=== PATIENT | female | born 1960 | race Caucasian/White ===

== ENCOUNTER 2016-09-04 18:28 | Inpatient (IN) | payer MEDICARE, OTHER ==
--- NOTE | ~2016-09-04 | A ---
[facility] Nutrition Therapy DATE: 09/05/16 Patient: JANETH ARAUZ Physician: TRUMAN Address: [address] Room/Bed: [address] [place] [address], Zip: [place] [address] Admit Date: 09/04/16 Date of : [birth year] Height: 5 4 Weight: 165 74.84 NUTRITIONAL ASSESSMENT: REASON: 2 PTS NUTRITION SCREEN RISK RE: 6# WEIGHT LOSS 56 yo female admitted for colitis PMH: HTN, GERD, HLD, chronic neck and back pain Anthropometrics: Ht: 64" Wt: 74.84 kg BMI: 28.3 Labs: Gluc 147 BUN 6 Alb 3.1 Meds: Protonix, lipitor, KCl, NaCl I/O & Bowel function: 1100/1, last BM 09/04, diarrhea noted Skin Integrity: no breakdown or edema noted Diet: Regular Assessment: Chart reviewed, events noted. RD spoke with the pt at bedside. Pt reportedly has lost ~6# in the past couple weeks due to diarrhea, n/v. Pt denies any abdominal pain or n/v at this time. Pt admitted for colitis, and noted to have bloody diarrhea. C.diff pending. Hepatomegaly and hepatic steatosis noted by MD. MD just wrote for pt to advance to regular diet, and the pt reported tolerance of clear liquids. Pt states she is hungry, and requested specific foods. RD reviewed menu options with the pt, encouraging her to start with low fiber options due to her colitis Dx. Pt voiced understanding. RD expects adequate PO intake. 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 Intervention: 1. Heart healthy diet Monitoring, Evaluation and Goals: 1. Oral intake; tolerate intake of solid food without c/o n/v, diarrhea 2. Improve labs; glucose 3. GI; promote regular GI function Recommendations: 1. Add heart healthy diet restriction due to the pt's PMH, also possible hepatic steatosis [facility] Therapy DATE: 09/05/16 Patient: JANETH ARAUZ Physician: TRUMAN Address: [address] Room/Bed: [address] [place] [address], Zip: [place] [address] Admit Date: 09/04/16 Date of : [birth year] Height: 5 4 Weight: 165 74.84 noted. Encouraged the pt to choose lower fiber options while colitis persists; however, the pt does not require the minimal fiber offered on low fiber diet at this time. 2. Monitor tolerance of solid food. If the pt has n/v, revert back to clear liquid diet. Pt is at mild nutritional risk. RD will follow up per protocol. Respectfully, RENU CORRALES RD, LD [facility] cc: client file
--- NOTE | ~2016-09-04 | DS ---
Unit #: [id number] #: [id number] Patient: JANETH ARAUZ [id number] [facility]. [place], [place] [address] [id number] MR#: [id number] NAME: JANETH ARAUZ. ROOM: 230 Age: 56 Sex: F Admission Date: 09/04/2016 : 1960 Discharge Date: 09/07/2016 Attending Physician: Phylicia Castro M.D. Primary Care Physician: Ricardo Coleman M.D. DISCHARGE SUMMARY DISCHARGE DIAGNOSES 1. Clostridium difficile colitis. 2. Essential hypertension. 3. Chronic pain syndrome with narcotic dependence. 4. Hypokalemia. 5. Chronic obstructive pulmonary disease. 6. Gastroesophageal reflux disease. 7. Hyperlipidemia. HOSPITAL COURSE The patient is a 56-year-old female who presented to [facility] with two to three days of bloody diarrhea. It was associated with lower abdominal pain, fevers, nausea, and vomiting. Patient was seen by her primary care provider and was noted to have a white cell count of 18. She underwent a CT scan which showed colitis of the ascending colon. She was started on Cipro and Flagyl but failed to improve. The patient was admitted and started on IV antibiotics. She was noted to have C. difficile colitis on laboratory testing and has been on continued IV Flagyl. At this time, the patient states she has had no diarrhea today. Her white count peaked at 20 but is 11 today. She is afebrile and has been over the course of her entire stay. As a result, the patient is being discharged home on 10 more days of oral Flagyl. DISCHARGE MEDICATIONS 1. Cymbalta 60 mg daily. 2. Ambien 10 mg p.o. at bedtime. 3. Amlodipine 5 mg p.o. daily. 4. Lasix 40 mg daily. 5. Lipitor 40 mg daily. 6. Hydrocodone and acetaminophen 10/325 at 1 p.o. q.6 hours p.r.n. 7. OxyContin 30 mg p.o. t.i.d. 8. Prilosec 20 mg daily. 9. Zanaflex 4 mg daily. 10. Flagyl 500 mg p.o. t.i.d. x10 days. FOLLOWUP Patient should follow up with her primary care provider, Dr. Coleman, at the end of her antibiotic course. Dictated by... Osiel Oneill M.D. Unit #: [id number] #: [id number] Patient: JANETH ARAUZ KATELYNN/cindy TD: 09/09/2016 14:30 JOB #: [id number] DISCHARGE SUMMARY Page 1 of 1 X Osiel Oneill MD X DISCHARGE SUMMARY
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
[2016-09-04 19:59] LABS: BASOPHIL# 0.1 X10e3 (0-0.3); BASOPHIL% 0.5 % (0-2.5); EOSINOPHIL# 0.4 X10e3 (0-0.7); EOSINOPHIL% 2.3 % (0.0-7.0); HEMOGLOBIN 11.6 gm/dL (12.0-16.0); LYMPHOCYTE# 2.2 X10e3 (1.0-3.5); LYMPHOCYTE% 11.5 % (17.0-45.0); MEAN CELL VOLUME 86.2 FL (83-96); MEAN CORPUSCULAR HEMOGLOBIN 28.6 PG (28-34); MEAN CORPUSCULAR HGB CONC 33.1 g/dL (30-36); MEAN PLATELET VOLUME 8.4 FL (6.5-11.5); MONOCYTE# 1.7 X10e3 (0-1.0); NEUTROPHIL# 14.8 X10e3 (1.5-7.1); NEUTROPHIL% 76.7 % (40-75); PLATELET COUNT 315 X10e3 (140-420); RED BLOOD COUNT 4.06 X10e (3.90-5.30); RED CELL DISTRIBUTION WIDTH 13.5 % (11.0-15.5); WHITE BLOOD COUNT 19.3 X10e3 (4.0-10.5)
[2016-09-04 20:01] LABS: DIFF IND YES
[2016-09-04 20:07] LABS: URINE SOURCE CLEAN CATCH
[2016-09-04 20:15] LABS: URINE APPEARANCE CLEAR; URINE BILIRUBIN NEG (NEG); URINE BLOOD NEG (NEG); URINE COLOR YELLOW; URINE GLUCOSE NEG (NEG); URINE KETONE NEG (NEG); URINE LEUKOCYTE ESTERASE TRACE (NEG); URINE NITRATE NEG (NEG); URINE PH 6.5 (5-8); URINE PROTEIN NEG (NEG); URINE SPECIFIC GRAVITY 1.006 (1.003-1.035); URINE UROBILINOGEN 0.2 MG/DL (NEG)
[2016-09-04 20:17] LABS: PLATELET ESTIMATE NORMAL (NORMAL)
[2016-09-04 20:20] LABS: ALBUMIN SERUM 3.1 g/dL (3.5-5.0); ALKALINE PHOSPHATASE 78 U/L (32-92); ALT (SGPT) 13 U/L (10-40); AST (SGOT) 14 U/L (10-42); BILIRUBIN, DIRECT 0.2 mg/dL (0.0-0.2); BILIRUBIN,INDIRECT 0.2 mg/dL (0.0-0.9); BILIRUBIN,TOTAL 0.4 mg/dL (0.2-2.0); CALCIUM SERUM 8.4 mg/dL (8.4-10.2); CARBON DIOXIDE 29 mmol/L (22-31); CHLORIDE 94 mmol/L (100-111); CREATININE SERUM 0.6 mg/dL (0.6-1.4); GLOM FILT RATE Estimated 103.3 mL/min (>60); GLUCOSE FASTING 108 mg/dL (70-110); LIPASE 12 U/L (22-51); PROTEIN TOTAL SERUM 6.5 g/dL (6.0-8.3); SODIUM 133 mmol/L (135-145)
[2016-09-04 20:21] LABS: BLOOD UREA NITROGEN <5 mg/dL (9-23); BUN/CREATININE RATIO 8.33
[2016-09-04 20:21] LABS: CULTURE INDICATED? YES; URBCS1 AUWI 0-2 /[HPF] (0-2); URINE BACTERIA AUWI NEG (NEGATIVE); URINE SQUAMOUS EPITHELIAL CELL OCC /[HPF]
[2016-09-04 20:22] LABS: AMYLASE 6 U/L (0-46); POTASSIUM 2.4 mmol/L (3.5-5.1)
[2016-09-04] MEDS ORDERED: LORTAB 10-3251 EACH PO (22:02)
[2016-09-04] MEDS ORDERED: OXYCONTIN30 MG PO (22:02)
[2016-09-04] MEDS ORDERED: AMLODIPINE BESYL5 MG PO (22:03)
[2016-09-04] MEDS ORDERED: DULOXETINE HCL60 MG PO (22:03)
[2016-09-04] MEDS ORDERED: PRILOSEC PO (22:03)
[2016-09-04] MEDS ORDERED: AMBIEN10 MG PO (22:04)
[2016-09-04] MEDS ORDERED: LIPITOR40 MG PO (22:04)
[2016-09-04] MEDS ORDERED: ZANAFLEX4 M1 PO (22:06)
[2016-09-04] MEDS ORDERED: LASIX PO (22:39)
[2016-09-05 07:21] LABS: HEMATOCRIT 35.8 % (35.0-45.0); HEMOGLOBIN 11.6 gm/dL (12.0-16.0); MEAN CELL VOLUME 88.6 FL (83-96); MEAN CORPUSCULAR HEMOGLOBIN 28.7 PG (28-34); MEAN CORPUSCULAR HGB CONC 32.4 g/dL (30-36); MEAN PLATELET VOLUME 8.7 FL (6.5-11.5); RED BLOOD COUNT 4.04 X10e (3.90-5.30); RED CELL DISTRIBUTION WIDTH 13.2 % (11.0-15.5); WHITE BLOOD COUNT 17.4 X10e3 (4.0-10.5)
[2016-09-05 07:24] LABS: INR 1.2; PARTIAL THROMBOPLASTIN TIME 29.2 SECONDS (23.5-31.3); PROTHROMBIN TIME (PATIENT) 12.2 SECONDS (9.6-11.5)
[2016-09-05 07:43] LABS: CALCIUM SERUM 8.7 mg/dL (8.4-10.2); CREATININE SERUM 0.6 mg/dL (0.6-1.4); GLOM FILT RATE Estimated 103.3 mL/min (>60); MAGNESIUM 1.9 mg/dL (1.6-3.0); POTASSIUM 3.8 mmol/L (3.5-5.1)
[2016-09-06 06:14] LABS: HEMATOCRIT 32.6 % (35.0-45.0); HEMOGLOBIN 10.6 gm/dL (12.0-16.0); MEAN CELL VOLUME 87.2 FL (83-96); MEAN CORPUSCULAR HEMOGLOBIN 28.4 PG (28-34); MEAN CORPUSCULAR HGB CONC 32.6 g/dL (30-36); MEAN PLATELET VOLUME 8.5 FL (6.5-11.5); RED BLOOD COUNT 3.73 X10e (3.90-5.30); RED CELL DISTRIBUTION WIDTH 13.2 % (11.0-15.5); WHITE BLOOD COUNT 20.1 X10e3 (4.0-10.5)
[2016-09-06 06:58] LABS: ALBUMIN SERUM 2.8 g/dL (3.5-5.0); BILIRUBIN,TOTAL 0.2 mg/dL (0.2-2.0); CALCIUM SERUM 8.5 mg/dL (8.4-10.2); CREATININE SERUM 0.6 mg/dL (0.6-1.4); GLOM FILT RATE Estimated 103.3 mL/min (>60); MAGNESIUM 1.7 mg/dL (1.6-3.0); POTASSIUM 3.2 mmol/L (3.5-5.1); PROTEIN TOTAL SERUM 5.6 g/dL (6.0-8.3)
[2016-09-07 05:42] LABS: HEMATOCRIT 33.7 % (35.0-45.0); HEMOGLOBIN 11.1 gm/dL (12.0-16.0); MEAN CELL VOLUME 87.1 FL (83-96); MEAN CORPUSCULAR HEMOGLOBIN 28.6 PG (28-34); MEAN CORPUSCULAR HGB CONC 32.8 g/dL (30-36); MEAN PLATELET VOLUME 8.3 FL (6.5-11.5); RED BLOOD COUNT 3.87 X10e (3.90-5.30); RED CELL DISTRIBUTION WIDTH 13.7 % (11.0-15.5); WHITE BLOOD COUNT 11.1 X10e3 (4.0-10.5)
[2016-09-07 06:26] LABS: ALBUMIN SERUM 2.9 g/dL (3.5-5.0); ALKALINE PHOSPHATASE 69 U/L (32-92); ALT (SGPT) 18 U/L (10-40); AST (SGOT) 18 U/L (10-42); BILIRUBIN,TOTAL 0.3 mg/dL (0.2-2.0); CALCIUM SERUM 8.6 mg/dL (8.4-10.2); CARBON DIOXIDE 31 mmol/L (22-31); CHLORIDE 102 mmol/L (100-111); CREATININE SERUM 0.6 mg/dL (0.6-1.4); GLOM FILT RATE Estimated 103.3 mL/min (>60); GLUCOSE FASTING 88 mg/dL (70-110); POTASSIUM 3.7 mmol/L (3.5-5.1); PROTEIN TOTAL SERUM 5.6 g/dL (6.0-8.3); SODIUM 140 mmol/L (135-145)
[2016-09-07 06:29] LABS: BLOOD UREA NITROGEN <5 mg/dL (9-23); BUN/CREATININE RATIO 8.33
[2016-09-07] MEDS ORDERED: FLAGYL PO (12:44)
== END 2016-09-07 15:37 | disposition home or self-care (01) | DRG 872 ==
LOC: CED 18:28 → CEDOF 21:30 → CED 21:32 → CEDOF 21:32 → C2A 23:05 → CEDOF 23:05 → C2A 09-05 08:25
PROVIDERS: Emergency Medicine; Internal Medicine
DX: A41.9 Sepsis, unspecified organism (principal); A04.7 Enterocolitis due to Clostridium difficile; F11.20 Opioid dependence, uncomplicated; E87.6 Hypokalemia; I10 Essential (primary) hypertension; K21.9 Gastro-esophageal reflux disease without esophagitis; E78.5 Hyperlipidemia, unspecified; G89.4 Chronic pain syndrome; J44.9 Chronic obstructive pulmonary disease, unspecified; Z87.891 Personal history of nicotine dependence; Z80.1 Family history of malignant neoplasm of trachea, bronchus and lung
CPT/HCPCS: 36415; 74176; 80048; 80053; 80076; 81003; 82150; 83605; 83690; 83735; 84703; 85025; 85027; 85610; 85730; 87045; 87086; 87427; 87493; 87899; 94640; 94760; 96361; 96374; 96375; 99285; J0696; J1200; J2270; J2405; J2543; J2930